=== PATIENT | male | born 1970 | race Two or more races ===

== ENCOUNTER 2020-11-01 10:14 | Day surgery (SDC) | payer OTHER ==
[2020-10-27 11:43] VITALS: BMI 31.8
[2020-11-01 10:41] VITALS: TEMP 98.8
[2020-11-01] MEDS ORDERED: MIDAZOLAM HCL 2 MG/2 ML SINGLE DOSE VIAL ONE ×2 (11:46→12:37)
[2020-11-01] MEDS ORDERED: PROPOFOL 20 ML ONE ×5 (11:46→12:21)
[2020-11-01] MEDS ORDERED: BUPIVACAINE HCL/PF 0.25% (2.5MG/ML) 10 ML VIAL ONE ×2 (12:02→13:57)
[2020-11-01] MEDS ORDERED: LIDOCAINE HCL 1%, 10 MG/ML (20ML VIAL) ONE (12:02)
[2020-11-01] MEDS ORDERED: LIDOCAINE HCL/PF 2% SDV 5ML VIAL ONE (12:43)
[2020-11-01] MEDS ORDERED: KETOROLAC TROMETHAMINE 30 MG/1 ML VIAL ONE (12:43)
[2020-11-01] MEDS ORDERED: DEXAMETHASONE SOD PHOSPHATE 4 MG/1 ML VIAL ONE (12:43)
[2020-11-01] MEDS ORDERED: ONDANSETRON 4 MG/2 ML VIAL ONE (12:43)
[2020-11-01] MEDS ORDERED: BUPIVACAINE HCL/PF 0.25% (2.5MG/ML) 10 ML VIAL IJ ONE ×2 (13:49→13:59)
[2020-11-01 15:06] VITALS: BP 146/90; PULSE 78
== END 2020-11-01 15:00 | disposition home or self-care (01) ==
LOC: FASU 10:14
PROVIDERS: ATTEND Podiatrist Foot Surgery
PROC: 0QSP04Z Reposition Left Metatarsal with Internal Fixation Device, Open Approach (ICD-10-PCS; principal; 2020-11-01 12:48)
DX: S92.352A Displaced fracture of fifth metatarsal bone, left foot, initial encounter for closed fracture (principal); X58.XXXA Exposure to other specified factors, initial encounter; Y93.9 Activity, unspecified; Y92.9 Unspecified place or not applicable; Y99.9 Unspecified external cause status
CPT/HCPCS: 28485; C1713; 73630-TC-LT